=== PATIENT | male | born 1945 | race Caucasian/White ===

== ENCOUNTER 2023-05-24 11:24 | Emergency (ER) | payer MEDICARE, MEDICAID ==
[~2023-05-24] VITALS: Ht 165.1 cm; Wt 63.6 kg
[2023-05-24 11:29] VITALS: BP 147/88; PULSE 81; RESP 16; O2SAT 96
[2023-05-24 12:58] LABS: BASOPHILS % (AUTO) 0.3 % (0-1); EOSINOPHILS # (AUTO) 0.1 X10'3 (0-0.9); EOSINOPHILS % (AUTO) 1.1 % (0-6); HEMATOCRIT 42.8 % (42.0-52.0); HEMOGLOBIN 14.1 g/dl (14.0-17.9); LYMPHOCYTES % (AUTO) 11.1 % (21-51); MEAN CORPUSCULAR HEMOGLOBIN 33.2 PG (27.0-31.0); MEAN CORPUSCULAR HGB CONC 32.9 g/dL (33.0-36.5); MEAN PLATELET VOLUME 6.8 FL (7.4-10.4); MONOCYTES # (AUTO) 0.6 X10'3 (0-0.9); MONOCYTES % (AUTO) 6.4 % (2-12); NEUTROPHILS # (AUTO) 7.3 X10'3 (1.8-7.7); NEUTROPHILS % (AUTO) 81.1 % (42-75); PLATELET COUNT 236 X10'3 (140-440); RED BLOOD COUNT 4.24 X10'6 (4.70-6.10); RED CELL DISTRIBUTION WIDTH 12.9 % (11.5-14.5)
[2023-05-24 13:06] LABS: ALANINE AMINOTRANSFERASE 30 U/L (12-78); ALBUMIN 3.2 G/DL (3.4-5.0); ALBUMIN/GLOBULIN RATIO 0.8 (1.1-1.5); ALKALINE PHOSPHATASE 77 IU/L (46-116); ANION GAP 8 (8-16); ASPARTATE AMINO TRANSFERASE 22 U/L (10-37); BILIRUBIN,TOTAL 0.5 MG/DL (0.1-1.0); BLOOD UREA NITROGEN 24 MG/DL (7-18); CALCIUM 8.6 MG/DL (8.5-10.1); CHLORIDE 104 MMOL/L (99-107); GLUCOSE 97 MG/DL (70-104); MAGNESIUM 2.2 MG/DL (1.5-2.4); POTASSIUM 4.3 MMOL/L (3.5-5.1); SODIUM 138 MMOL/L (135-145); TOTAL CARBON DIOXIDE 26.1 MMOL/L (24-32); eCRCL 54 ML/MIN; eGFR 72 ML/MIN
[2023-05-24] MEDS ORDERED: iohexol 300mg/ml 100ml inj. ONE (13:26)
[2023-05-24] MEDS ORDERED: ACET-1025 PO (16:19)
[2023-05-24] MEDS ORDERED: IBUP-1984 PO (16:19)
[2023-05-24] MEDS ORDERED: ibuprofen tablet 400 MG TABLET PO ONE (16:20)
[2023-05-24] MEDS ORDERED: acetaminophen 325mg tablet PO ONE (16:20)
== END 2023-05-24 18:53 | disposition home or self-care (01) ==
LOC: ER 11:25
DX: S22.32XA Fracture of one rib, left side, initial encounter for closed fracture (principal); F03.90 Unspecified dementia, unspecified severity, without behavioral disturbance, psychotic disturbance, mood disturbance, and anxiety; W18.39XA Other fall on same level, initial encounter; Y93.89 Activity, other specified; Y92.89 Other specified places as the place of occurrence of the external cause; Y99.8 Other external cause status
CPT/HCPCS: 36415; 71101; 71260; 74177; 80053; 83735; 85025; 93005; 99285; J3490; Q9967

== ENCOUNTER 2024-03-09 21:25 | Emergency (ER) | payer MEDICARE, MEDICAID ==
[~2024-03-09] VITALS: Ht 165.1 cm; Wt 75.2 kg
[2024-03-09 22:01] LABS: BASOPHILS % (AUTO) 0.3 % (0-1); EOSINOPHILS % (AUTO) 0.3 % (0-6); HEMATOCRIT 41.8 % (42.0-52.0); LYMPHOCYTES # (AUTO) 0.9 X10'3 (1.1-4.8); LYMPHOCYTES % (AUTO) 6.6 % (21-51); MEAN CORPUSCULAR HEMOGLOBIN 33.1 PG (27.0-31.0); MEAN CORPUSCULAR HGB CONC 33.4 g/dL (33.0-36.5); MEAN CORPUSCULAR VOLUME 99.2 FL (78-98); MEAN PLATELET VOLUME 6.4 FL (7.4-10.4); MONOCYTES # (AUTO) 0.9 X10'3 (0-0.9); MONOCYTES % (AUTO) 6.3 % (2-12); NEUTROPHILS # (AUTO) 11.8 X10'3 (1.8-7.7); NEUTROPHILS % (AUTO) 86.5 % (42-75); PLATELET COUNT 210 X10'3 (140-440); RED BLOOD COUNT 4.22 X10'6 (4.70-6.10); RED CELL DISTRIBUTION WIDTH 12.6 % (11.5-14.5); WHITE BLOOD COUNT 13.7 X10'3 (4.5-11.0)
[2024-03-09 22:10] LABS: ALANINE AMINOTRANSFERASE 21 U/L (12-78); ALBUMIN 3.2 G/DL (3.4-5.0); ALBUMIN/GLOBULIN RATIO 0.9 (1.1-1.5); ALKALINE PHOSPHATASE 92 IU/L (46-116); ANION GAP 9 (8-16); ASPARTATE AMINO TRANSFERASE 17 U/L (10-37); BILIRUBIN,TOTAL 1.1 MG/DL (0.1-1.0); BLOOD UREA NITROGEN 16 MG/DL (7-18); CALCIUM 8.7 MG/DL (8.5-10.1); CHLORIDE 104 MMOL/L (99-107); CREATININE 1.23 MG/DL (0.60-1.10); GLUCOSE 128 MG/DL (70-104); POTASSIUM 3.7 MMOL/L (3.5-5.1); SODIUM 136 MMOL/L (135-145); TOTAL CARBON DIOXIDE 23.3 MMOL/L (24-32); TOTAL PROTEIN 6.9 G/DL (6.4-8.2); eCRCL 43 ML/MIN; eGFR 57 ML/MIN
[2024-03-09 22:18] LABS: PRO BRAIN NATRIURETIC PEPTIDE 251 PG/ML (0-450)
[2024-03-09] MEDS ORDERED: AZIT-164 PO (23:06)
[2024-03-09] MEDS ORDERED: AMOX-115 PO (23:11)
[2024-03-09 23:30] VITALS: TEMP 99.1
[2024-03-09] MEDS: ondansetron 4mg rapidly disintigrating tab PO ONE (23:45)
[2024-03-09] MEDS: acetaminophen 325mg tablet PO ONE (23:45)
[2024-03-09] MEDS: normal saline 1000ml 1,000 ML IV ONE (23:45)
[2024-03-09] MEDS: amox tr/potassium clavulanate 500mg/125mg TAB PO ONE (23:46)
[2024-03-09] MEDS: azithromycin 250mg tablet PO ONE (23:46)
[2024-03-10 00:05] VITALS: BP 123/71; PULSE 85; RESP 19; O2SAT 92
== END 2024-03-10 00:58 | disposition home or self-care (01) ==
LOC: ER 21:25
DX: R05.9 Cough, unspecified (principal); I49.9 Cardiac arrhythmia, unspecified; Z79.2 Long term (current) use of antibiotics; Z20.822 Contact with and (suspected) exposure to COVID-19
CPT/HCPCS: 36415; 71045; 80053; 83605; 83880; 84145; 84484; 85025; 87040; 87811; 93005; 96360; 99285; J7030